=== PATIENT | female | born 1980 | race Caucasian/White ===

== ENCOUNTER 2019-12-14 19:52 | Emergency (ER) | payer OTHER ==
[~2019-12-14] VITALS: Ht 175.3 cm; Wt 77.1 kg
[2019-12-14] MEDS ORDERED: VALSARTAN-HCTZ1 EAC3 (20:01)
[2019-12-15] MEDS ORDERED: LEVSIN/SL0.125 MG SL (01:36)
[2019-12-15] MEDS ORDERED: VISTARIL25 MG PO (01:36)
[2019-12-15] MEDS ORDERED: PEPCID AC20 MG PO (01:36)
[2019-12-15] MEDS ORDERED: INTESTINEX680 M1 PO (01:36)
== END 2019-12-15 02:07 | disposition home or self-care (01) ==
LOC: ER 19:52
DX: K52.9 Noninfective gastroenteritis and colitis, unspecified (principal); I10 Essential (primary) hypertension